=== PATIENT | female | born 1995 | race Caucasian/White ===

== ENCOUNTER 2023-02-20 09:52 | Emergency (ER) | payer OTHER ==
[2023-02-20 09:59] VITALS: BP 114/58
[2023-02-20] MEDS ORDERED: cephALEXin 250 MG CAPSULE PO STA (10:10)
--- NOTE | 2023-02-20 10:11 | ED Physician Documentation ---
History of Present Illness - Stated complaint Stated Complaint: FEVER - Chief complaint Chief Complaint: Fever - History obtained from History obtained from: Patient (Previously healthy 27-year-old is breast-feeding her first born 2-month-old. Since yesterday she developed some right superior breast tenderness and had a subjective fever last night.) PD PAST MEDICAL HISTORY - Present Medications Home Medications: Ambulatory Orders Medication Instructions Recorded Confirmed cephALEXin [Keflex] 500 mg PO Q6H #28 cap 02/20/23 PD ED PE NORMAL - Vitals Vital signs reviewed: Yes - General General: Alert and oriented X 3, No acute distress - Extremities Extremities: Other (Tenderness and warmth to the superior right breast without fluctuance or swelling consistent with abscess.) - Neuro Neuro: Alert and oriented X 3, Normal speech Results - Vitals Vitals: Vital Signs - 24 hr 02/20/23 09:56 Temperature 37.2 C Heart Rate 91 Respiratory 16 Rate Blood Pressure 114/58 L O2 Saturation 100 Oxygen O2 Source Room air PD Medical Decision Making - ED course ED course: 27-year-old woman with breast-feeding associated mastitis. Started on Keflex. No clinical evidence of abscess at this juncture. Departure - Departure Disposition: Home, Self Care Clinical Impression: Mastitis in female Condition: Good Record reviewed to determine appropriate education?: Yes Instructions: ED Breast Infec Prescriptions: cephALEXin [Keflex] 500 mg PO Q6H #28 cap Comments: Recheck with your physician or product blending supervisor in about 2 to 3 days. Return for new or worsening symptoms. You can take Tylenol and/or ibuprofen as needed per package instructions for pain or fevers.
== END 2023-02-20 10:38 | disposition home or self-care (01) ==
LOC: ED 09:52
DX: N61.0 Mastitis without abscess (principal)
CPT/HCPCS: 99282; 99283; A9270

== ENCOUNTER 2024-02-15 21:14 | Emergency (ER) | payer OTHER ==
[2024-02-15 21:26] VITALS: BP 112/60; O2SAT 100
[2024-02-15 21:43] LABS: BILIRUBIN,URINE NEGATIVE (NEGATIVE); GLUCOSE, URINE (UA) NEGATIVE (NEGATIVE); KETONES,URINE (UA) NEGATIVE (NEGATIVE); LEUKOCYTE ESTERASE, URINE NEGATIVE (NEGATIVE); NITRITE,URINE NEGATIVE (NEGATIVE); OCCULT BLOOD,URINE NEGATIVE (NEGATIVE); PROTEIN,URINE NEGATIVE (NEGATIVE); UROBILINOGEN,URINE 0.2 (NORMAL) E.U./dL (NORMAL)
[2024-02-15 21:45] LABS: CLARITY,URINE CLEAR (CLEAR)
[2024-02-15 21:46] LABS: HCG UR QUAL NEGATIVE
--- NOTE | 2024-02-15 21:46 | ED Physician Documentation ---
History of Present Illness - Stated complaint Stated Complaint: - Chief complaint Chief Complaint: Abd Pain - History obtained from History obtained from: Patient - Additonal information Additional information: 28yF p/w whitish thick vaginal discharge and irritation and dysuria x 2 days. not currently . otherwise healthy. denies hematuria or increased frequency. denies fever, abdominal pain, back pain. lmp last week PD PAST MEDICAL HISTORY - Past Medical History Past Medical History: No Cardiovascular: None Respiratory: None Neuro: None Endocrine/Autoimmune: None GI: None CAN PATCHER: None : None HEENT: None Psych: None Musculoskeletal: None Derm: None - Past Surgical History Past Surgical History: No - Present Medications Home Medications: Ambulatory Orders Medication Instructions Recorded Confirmed cephALEXin [Keflex] 500 mg PO Q6H #28 cap 02/20/23 Lactobacillus Acidophilus 1 each PO QDAC #30 cap 02/15/24 [Acidophilus Probiotic] Miconazole Supp [Monistat 3] 200 mg VG QPM #3 supp 02/15/24 - Allergies Allergies/Adverse Reactions: Allergies Allergy/AdvReac Type Severity Reaction Status Date / Time No Known Drug Allergies Allergy Verified 02/15/24 21:19 - Social History Does the pt smoke?: No Smoking Status: Never smoker Does the pt drink ETOH?: Yes Does the pt have substance abuse?: No - Immunizations Immunizations are current?: Yes - POLST Patient has POLST: No PD ED PE NORMAL - Vitals Vital signs reviewed: Yes - General General: Alert and oriented X 3, No acute distress, Well developed/nourished - HEENT HEENT: Atraumatic, PERRL, EOMI, Moist mucous membranes, Pharynx benign - Neck Neck: Supple, no meningeal sign - Cardiac Cardiac: RRR - Respiratory Respiratory: No respiratory distress, Clear bilaterally - Abdomen Abdomen: Non tender, Non distended - Female Female : Pt declined - Back Back: No CVA TTP - Derm Derm: Normal color, Warm and dry - Extremities Extremities: No deformity - Neuro Neuro: Alert and oriented X 3 Results - Vitals Vitals: Vital Signs - 24 hr 02/15/24 21:19 Temperature 36.8 C Heart Rate 70 Respiratory 16 Rate Blood Pressure 112/60 O2 Saturation 100 Oxygen O2 Source Room air - Labs Labs: Laboratory Tests 02/15/24 02/15/24 21:28 21:28 Urine Color LIGHT YELLOW Urine Clarity CLEAR Urine pH 6.0 Ur Specific [place] 1.010 Urine Protein NEGATIVE Urine Glucose (UA) NEGATIVE Urine Ketones NEGATIVE Urine Occult Blood NEGATIVE Urine Nitrite NEGATIVE Urine Bilirubin NEGATIVE Urine Urobilinogen 0.2 (NORMAL) Ur Leukocyte Esterase NEGATIVE Ur Microscopic Review NOT INDICATED Urine Culture Comments NOT INDICATED Urine HCG, Qual NEGATIVE PD Medical Decision Making - ED course ED course: 28yF p/w dysuria X 2 days and increased white thick vaginal discharge, with recent history of multiple yeast infections. self swab sent to lab. 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 probiotic and presumptive antifungals sent to pharmacy. return precautions given. Departure - Departure Disposition: Home, Self Care Clinical Impression: Abnormal urogenital discharge, Dysuria Condition: Stable Prescriptions: Lactobacillus Acidophilus [Acidophilus Probiotic] 1 each PO QDAC #30 cap Miconazole Supp [Monistat 3] 200 mg VG QPM #3 supp Comments: You were seen in the emergency department for possible yeast infection. Probiotic and antifungal sent to your pharmacy. Please follow-up with your [employer] loom chain pegger and return to the emergency department if you have any new or worsening symptoms or other concerns. Forms: PCP List
[2024-02-15 23:53] LABS: BACTERIAL VAGINOSIS DNA NEGATIVE (NEGATIVE); CANDIDA GLABRATA DNA NEGATIVE (NEGATIVE); CANDIDA GROUP DNA POSITIVE (NEGATIVE); CANDIDA KRUSEI DNA NEGATIVE (NEGATIVE); TRICHOMONAS VAGINALIS DNA NEGATIVE (NEGATIVE)
[2024-02-16 01:21] LABS: CHLAMYDIA TRACHOMATIS DNA NEGATIVE (NEGATIVE); NEISSERIA GONORRHOEAE DNA NEGATIVE (NEGATIVE)
== END 2024-02-15 22:11 | disposition home or self-care (01) ==
LOC: ED 21:14
DX: N89.8 Other specified noninflammatory disorders of vagina (principal); R30.0 Dysuria
CPT/HCPCS: 81001; 81003; 81025; 81514; 87086; 87101; 87210; 87491; 87591; 87661; 99283